=== PATIENT | female | born 1980 | race Caucasian/White ===

== ENCOUNTER 2017-12-08 12:43 | Emergency (ER) | payer BC ==
[~2017-12-08] VITALS: Ht 170.2 cm; Wt 77.1 kg
[2017-12-08 12:56] VITALS: BP 125/88
[2017-12-08] MEDS ORDERED: HYDROcodone/APAP 10/325 1 TAB TABLET PO ONE (13:00)
--- NOTE | 2017-12-08 13:24 | RAD ---
History: Fall down steps today. Landed on knee. Comparison: None. Findings: AP, lateral, merchant, and oblique views of the left knee. No acute fracture or dislocation is identified. No joint effusion is seen. Impression: No acute osseous traumatic injury identified. Electronically signed by: Bennett Jiang MD (12/08/2017 1:21 PM) [id number]
--- NOTE | 2017-12-08 13:57 | PHYS DOC ---
Past History Past Medical History: No Pertinent History Past Surgical History: No Surgical History Alcohol Use: Occasionally Drug Use: None Adult General Chief Complaint Chief Complaint: KNEE INJURY HPI HPI Patient is a 37-year-old female who presents with complaint of left knee pain after falling onto her left knee. Patient states that she had tripped and fallen directly onto her knee. She rates pain at a 10 out of 10 and states that she is not able to bear weight due to the pain. She states the pain is worsened with any movement of her knee. She denies any other injuries. Review of Systems Review of Systems Constitutional: Denies fever or chills [] Respiratory: Denies cough or shortness of breath [] Musculoskeletal: Complains of left knee pain[] Integument: Denies rash or skin lesions [] Neurologic: Denies headache, focal weakness or sensory changes [] Current Medications Current Medications Current Medications Medications (Trade) Dose Ordered Sig/Annette Start Time Stop Time Status Last Admin Dose Admin Acetaminophen/ Hydrocodone Bitart (Lortab 10/325) 1 tab 1X ONCE 12/08/17 13:00 12/08/17 13:08 DC 12/08/17 13:07 1 TAB Allergies Allergies Allergies Coded Allergies Type Severity Reaction Last Updated Verified morphine Allergy Unknown 12/08/17 Yes Physical Exam Physical Exam Constitutional: Well developed, well nourished, in mild distress. [] Cardiovascular:Heart rate regular rhythm, no murmur [] Lungs & Thorax: Bilateral breath sounds clear to auscultation [] Skin: Warm, dry, no erythema, no rash. [] Extremities: Left knee demonstrates mild soft tissue swelling around patella. Unable to fully assess range of motion or ligament status due to level of pain.. [] Neurologic: Alert and oriented X 3. [] Current Patient Data Vital Signs Vital Signs Date Time Temp Pulse Resp B/P (MAP) Pulse Ox O2 Delivery O2 Flow Rate FiO2 12/08/17 13:07 Room Air 12/08/17 12:56 97.0 79 18 100 EKG EKG [] Radiology/Procedures Radiology/Procedures [] Impressions: Left knee demonstrates no acute bony abnormalities. Course & Med Decision Making Course & Med Decision Making Pertinent Labs and Imaging studies reviewed. (See chart for details) Left knee placed in knee immobilizer by ER nurse. Patient provided with crutches and training. Dragon Disclaimer Dragon Disclaimer This electronic medical record was generated, in whole or in part, using a voice recognition dictation system. Departure Departure: Impression: Primary Impression: Left knee sprain Referrals: LENARD RUVALCABA MD (PCP) Patient Instructions: Contusion, Form - Excuse from Work, School, or Physical Activity, Knee Sprain Problem Qualifiers Primary Impression: Left knee sprain Encounter type: initial encounter Involved ligament of knee: unspecified ligament Qualified Codes: S83.92XA - Sprain of unspecified site of left knee, initial encounter KAVEH HUERTA Jr. DO Dec 08, 2017 13:57
== END 2017-12-08 14:10 | disposition home or self-care (01) ==
LOC: ER 12:55
DX: S76.112A Strain of left quadriceps muscle, fascia and tendon, initial encounter (principal); Z88.5 Allergy status to narcotic agent; W01.0XXA Fall on same level from slipping, tripping and stumbling without subsequent striking against object, initial encounter; Y93.89 Activity, other specified; Y92.89 Other specified places as the place of occurrence of the external cause; Y99.8 Other external cause status
CPT/HCPCS: 29505; 73564; 99284

== ENCOUNTER 2021-05-28 00:25 | Emergency (ER) | payer BC ==
[~2021-05-28] VITALS: Ht 170.2 cm; Wt 78.7 kg
--- NOTE | 2021-05-28 00:43 | PHYS DOC ---
Past History Past Medical History: No Pertinent History Past Surgical History: Other Alcohol Use: Occasionally Drug Use: None Adult General Chief Complaint Chief Complaint: BACK PAIN OR INJURY HPI HPI Patient is a 40-year-old female with a past medical history of left-sided low back pain and sciatica who presents with exacerbation of sciatica. Denies any recent travels, traumas, illness, fevers, chest pain, shortness of breath, abdominal pain, nausea, vomiting, dysuria, hematuria or blood in the stool. Denies any trouble making urine or stool. Denies any trouble sitting, standing or walking. States she has pain on the left side of her upper gluteus, 7 out of 10, dull and aching nature with some radiation down to her left calf which is similar to previous exacerbations. States he tried some ibuprofen earlier this morning and doing some stretching with minimal relief. Review of Systems Review of Systems Review of systems otherwise unremarkable except noted in HPI Allergies Allergies Allergies Coded Allergies Type Severity Reaction Last Updated Verified morphine Allergy Unknown 12/08/17 Yes Physical Exam Physical Exam Constitutional: Well developed, well nourished, no acute distress, non-toxic appearance. [] HENT: Normocephalic, atraumatic, Skin: Warm, dry, no erythema, no rash. [] Back: No tenderness, no CVA tenderness. [] Extremities: Neurovascular exam intact, some tenderness around upper left gluteus with some probable spasm Neurologic: Alert and oriented X 3, normal motor function, normal sensory function, able to sit, stand and walk without issue, no focal deficits noted. [] Psychologic: Affect normal, judgement normal, mood normal. [] Current Patient Data Vital Signs Vital Signs Date Time Temp Pulse Resp B/P (MAP) Pulse Ox O2 Delivery O2 Flow Rate FiO2 05/28/21 00:33 98.3 95 20 155/96 (115) 100 Room Air EKG EKG [] Radiology/Procedures Radiology/Procedures [] Heart Score C/O Chest Pain: No Risk Factors: Risk Factors: DM, Current or recent (<one month) smoker, HTN, HLP, family history of CAD, obesity. Risk Scores: Risk Factors: DM, Current or recent (<one month) smoker, HTN, HLP, family history of CAD, obesity. Course & Med Decision Making Course & Med Decision Making This 40-year-old female who presents with a sciatica exacerbation Vital signs nonconcerning. Physical exam noted above. Given ice pack and medicines for pain management Discussed pain management at home. Given muscle relaxers for home. Advised to follow-up in the morning with primary care physician discussed the need for MRI Gave return precautions to the ED. Patient grateful, verbalized understanding and agreed with plan of discharge [] Dragon Disclaimer Dragon Disclaimer This electronic medical record was generated, in whole or in part, using a voice recognition dictation system. Departure Departure: Impression: Primary Impression: Sciatica Disposition: HOME / SELF CARE / HOMELESS Condition: STABLE Referrals: CHIARA CABRERA (PCP) Patient Instructions: Sciatica Additional Instructions: Thank you for coming into the emergency department tonight allowing us to take care of you. Please read the attached information carefully to go over things we discussed. Please be sure to start a regimen of 1000 mg of Tylenol every 8 hours, 800 mg of ibuprofen every 8 hours, Benadryl 50 mg every 6 hours, your muscle relaxers every 12 hours and ice. Please do some stretching as we discussed as well. Please follow-up in the morning with your primary care physician to discuss your ED visit and have them set up an outpatient MRI for continued evaluation. Please come back with new or concerning symptoms as discussed. SEEMA SHER MD May 28, 2021 00:43
[2021-05-28 00:52] VITALS: BP 149/98
[2021-05-28] MEDS ORDERED: HYDROmorphone PF 2 MG/ML VIAL IM ONE (01:00)
[2021-05-28] MEDS ORDERED: CYCLOBENZAPRINE 10MG 4TABLET STARTPACK PO ONE (01:00)
[2021-05-28] MEDS ORDERED: KETOROLAC 30 MG/ML VIAL. IM ONE (01:00)
== END 2021-05-28 00:58 | disposition home or self-care (01) ==
LOC: ER 00:26
DX: M54.42 Lumbago with sciatica, left side (principal); Z88.5 Allergy status to narcotic agent
CPT/HCPCS: 96372; 99284; J1170; J1885